=== PATIENT | male | born 1940 | race Caucasian/White ===

== ENCOUNTER 2020-03-06 15:21 | Emergency (ER) | payer OTHER ==
[2020-03-06] MEDS ORDERED: TETANUS & DIPHTHERIA TOX,ADULT 0.5 ML VIAL ONE (16:26)
--- NOTE | 2020-03-06 16:38 | EDPHYS ---
Physician Documentation [facility] Name: Bam Silverman Age: 79 yrs Sex: Male : 1940 Arrival Date: 03/06/2020 Time: 15:22 Bed 18 Private MD: Darin Kelly C ED Physician Win Sandoval HPI: 03/06 16:27 This 79 yrs old Male presents to ER via Ambulatory with complaints of Dog pm1 Bite. 16:27 The patient was bitten on the left knee, by a dog, at a neighbor's home. Onset: The pm1 symptoms/episode began/occurred 1 hour(s) ago. Animal information: The animal was reported to appear healthy. Animal's vaccinations are up to date. [place] . Secondary to the bite the patient reports bite to left knee. Associated signs and symptoms: The patient has no apparent associated signs or symptoms, Pertinent negatives: bony tenderness, motor deficit, numbness distal to wound, pain at site, suspected foreign body. Severity of symptoms: in the emergency department the symptoms have improved. The patient has not experienced similar symptoms in the past. Historical: - Allergies: 15:38 No Known Allergies; ca1 - Home Meds: 15:38 Coumadin 10 mg Oral tab 1 tab 5 x a day [Active]; Coumadin 7.5 mg Oral tab 1 tab 2x a ca1 week [Active]; lisinopril 10 mg oral tab 1 tab once daily [Active]; Zocor 40 mg Oral tab 1 tab once daily [Active]; - PMHx: 15:38 Hypertension; Hyperlipidemia; ca1 - PSHx: 15:38 artificial heart valve; Cholecystectomy; Appendectomy; amputations finger R; ca1 - Immunization history:: Adult Immunizations up to date, Last tetanus immunization: unknown, Pneumococcal vaccine status is unknown, Flu vaccine is up to date. - Social history:: Smoking status: Patient denies any tobacco usage or history of. ROS: 16:27 Constitutional: Negative for fever, chills, and weight loss, Cardiovascular: Negative pm1 for chest pain, palpitations, and edema, Respiratory: Negative for shortness of breath, cough, wheezing, and pleuritic chest pain, Back: Negative for injury and pain. 16:27 Neuro: Negative for headache, weakness, numbness, tingling, and seizure. 16:27 MS/extremity: Positive for for injury, abrasion, Negative for decreased range of motion, deformity. 16:27 Skin: Positive for dog bite on left knee. 16:27 All other systems are negative. Exam: 16:27 Constitutional: This is a well developed, well nourished patient who is awake, alert, pm1 and in no acute distress. Head/Face: Normocephalic, atraumatic. 16:27 Chest/axilla: Normal chest wall appearance and motion. Nontender with no deformity. No lesions are appreciated. 16:27 Cardiovascular: Exam negative for acute changes, Rate: normal, Pulses: no pulse deficits are appreciated, Edema: is not appreciated. 16:27 Respiratory: Exam negative for acute changes, respiratory distress, shortness of breath, wheezing. 16:27 Back: Exam negative for 16:27 Back: Exam negative for acute changes, ROM is normal. 16:27 Musculoskeletal/extremity: Extremities: grossly normal except: noted in the left knee - over lateral head of left fibula: abrasion, There is no evidence of decreased ROM, deformity, laceration, puncture. 16:27 Skin: Appearance: normal except for affected area, injury, abrasion(s), small abrasion noted, of the lateral aspect of left knee - over lateral head of left fibula. 16:27 Neuro: Exam negative for acute changes, Orientation: is normal, Mentation: is normal, Motor: is normal, moves all fours, Sensation: is normal, no obvious gross deficits, Gait: is steady, at a normal pace, without difficulty. Vital Signs: 15:33 BP 170 / 64; Pulse 56; Resp 17 S; Temp 98(O); Pulse Ox 100% on R/A; Weight 88.45 kg ca1 (R); Height 6 ft. 2 in. (187.96 cm); 16:51 BP 157 / 71; Pulse 60; Resp 17; Temp 98; Pulse Ox 100% ; bp 15:33 Body Mass Index 25.04 (88.45 kg, 187.96 cm) ca1 MDM: 15:41 Patient medically screened. pm1 16:15 ED course: officer took report from patient in room. pm1 16:15 Data reviewed: vital signs. Data interpreted: Pulse oximetry: on room air is 100 %. pm1 Interpretation: normal. 16:35 Counseling: I had a detailed discussion with the patient and/or guardian regarding: the pm1 historical points, exam findings, and any diagnostic results supporting the discharge/admit diagnosis, radiology results, the need for outpatient follow up, to return to the emergency department if symptoms worsen or persist or if there are any questions or concerns that arise at home, Patient has Coumadin/INR lab check in 1 week. Informed patient that Augmentin can elevated INR. Educated on need for antibiotic and return precautions. 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 Exp: bp 11/25/2021. Lot #: [id number]. } Route: IM; Site: right deltoid; 16:26 Follow up: Response: No adverse reaction bp Disposition: 18:25 Co-signature as Attending Physician, Win Sandoval MD. rn Disposition: 03/06/20 16:37 Discharged to Home. Impression: Bitten by dog, Abrasion, left knee. - Condition is Stable. - Discharge Instructions: Abrasion, Animal Bite. - Prescriptions for Augmentin 875- 125 mg Oral Tablet - take 1 tablet by ORAL route every 12 hours for 10 days; 20 tablet. - Medication Reconciliation Form, Thank You Letter, Antibiotic Education, Prescription Opioid Use form. - Follow up: Emergency Department; When: As needed; Reason: Worsening of condition. Follow up: Private Physician; When: 2 - 3 days; Reason: Recheck today's complaints, Continuance of care, Re-evaluation by your physician. - Problem is new. - Symptoms have improved. Signatures: Dispatcher [employer] EDMS Win Sandoval MD MD rn Marinas, Patrick, NP CALCULUS PROFESSOR pm1 Wesley Bhagat RN RN bp Acob, Cheryl, RN RN ca1 Corrections: (The following items were deleted from the chart) 16:53 16:37 03/06/2020 16:37 Discharged to Home. Impression: Bitten by dog; Abrasion, left bp knee. Condition is Stable. Forms are Medication Reconciliation Form, Thank You Letter, Antibiotic Education, Prescription Opioid Use. Follow up: Emergency Department; When: As needed; Reason: Worsening of condition. Follow up: Private Physician; When: 2 - 3 days; Reason: Recheck today's complaints, Continuance of care, Re-evaluation by your physician. Problem is new. Symptoms have improved. pm1
--- NOTE | 2020-03-06 16:38 | ER ---
Nurse's Notes [facility] Name: Bam Silverman Age: 79 yrs Sex: Male : 1940 Arrival Date: 03/06/2020 Time: 15:22 Bed 18 Private MD: Darin Kelly C Diagnosis: Bitten by dog;Abrasion, left knee Presentation: 03/06 15:33 Chief complaint: Patient states: Dog bite at L lateral Knee about an hour ago. ca1 Coronavirus screen: Proceed with normal triage. Patient denies a cough. Patient denies shortness of breath or difficulty breathing. Patient denies measured and/or subjective temperature greater than 100.4F prior to today's visit. Patient denies travel on a cruise ship or to a country [facility] currently lists as an affected area. Patient denies contact with known and/or suspected case of COVID-19. Ebola Screen: Patient negative for fever greater than or equal to 101.5 degrees Fahrenheit, and additional compatible Ebola Virus Disease symptoms Patient denies exposure to infectious person. Patient denies travel to an Ebola-affected area in the 21 days before illness onset. No symptoms or risks identified at this time. Initial Sepsis Screen: Does the patient meet any 2 criteria? No. Patient's initial sepsis screen is negative. Does the patient have a suspected source of infection? No. Patient's initial sepsis screen is negative. Risk Assessment: Do you want to hurt yourself or someone else? Patient reports no desire to harm self or others. Onset of symptoms was March 06, 2020. 15:33 Method Of Arrival: Ambulatory ca1 15:33 Acuity: JO-ANN 4 ca1 Triage Assessment: 15:35 Bite description: bite sustained to left knee by a dog, animal information: bp vaccination(s) is current. General: Appears in no apparent distress. comfortable, Behavior is calm, cooperative, appropriate for age. Pain: Complains of pain in left knee. EENT: No deficits noted. Neuro: No deficits noted. Cardiovascular: No deficits noted. Respiratory: No deficits noted. GI: No signs and/or symptoms were reported involving the gastrointestinal system. : No signs and/or symptoms were reported regarding the genitourinary system. Derm: No deficits noted. Musculoskeletal: No deficits noted. Injury Description: Bite sustained to left knee. Historical: - Allergies: 15:38 No Known Allergies; ca1 - Home Meds: 15:38 Coumadin 10 mg Oral tab 1 tab 5 x a day [Active]; Coumadin 7.5 mg Oral tab 1 tab 2x a ca1 week [Active]; lisinopril 10 mg oral tab 1 tab once daily [Active]; Zocor 40 mg Oral tab 1 tab once daily [Active]; - PMHx: 15:38 Hypertension; Hyperlipidemia; ca1 - PSHx: 15:38 artificial heart valve; Cholecystectomy; Appendectomy; amputations finger R; ca1 - Immunization history:: Adult Immunizations up to date, Last tetanus immunization: unknown, Pneumococcal vaccine status is unknown, Flu vaccine is up to date. - Social history:: Smoking status: Patient denies any tobacco usage or history of. Screenin:35 Abuse screen: Denies threats or abuse. Denies injuries from another. Nutritional bp screening: No deficits noted. Tuberculosis screening: No symptoms or risk factors identified. Fall Risk None identified. Assessment: 15:35 General: SEE TRIAGE NOTE. Derm: Skin is intact, is healthy with good turgor, Skin is bp pink, warm \T\ dry. 15:43 Reassessment: called and notified, spoke with Ruth. ca1 16:51 Reassessment: PT D/C HOME AMBULATORY, DX WITH DOG BITE. bp Vital Signs: 15:33 BP 170 / 64; Pulse 56; Resp 17 S; Temp 98(O); Pulse Ox 100% on R/A; Weight 88.45 kg ca1 (R); Height 6 ft. 2 in. (187.96 cm); 16:51 BP 157 / 71; Pulse 60; Resp 17; Temp 98; Pulse Ox 100% ; bp 15:33 Body Mass Index 25.04 (88.45 kg, 187.96 cm) ca1 ED Course: 15:22 Patient arrived in ED. ag5 15:22 Darin Kelly MD is Private Physician. ag5 15:34 Triage completed. ca1 15:35 Patient has correct armband on for positive identification. Bed in low position. Call bp light in reach. Side rails up X2. 15:38 Arm band placed on right wrist. ca1 15:41 Jaya Raygoza NP is PHCP. pm1 15:41 Win Sandoval MD is Attending Physician. pm1 16:15 Wesley Bhagat, RN is Primary Nurse. bp 16:30 Wound care: to DOG BITE located on left knee was cleaned with Hibiclens, dressed with bp Neosporin, Patient tolerated well. 16:39 Knee Left 3 View XRAY In Process Unspecified. EDMS 16:51 No provider procedures requiring assistance completed. Patient did not have IV access bp during this emergency room visit. 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 Exp: bp 11/25/2021. Lot #: [id number]. } Route: IM; Site: right deltoid; 16:26 Follow up: Response: No adverse reaction bp Outcome: 16:37 Discharge ordered by MD. pm1 16:52 Discharged to home ambulatory. bp 16:52 Condition: stable 16:52 Discharge instructions given to patient, Instructed on discharge instructions, follow up and referral plans. medication usage, wound care, Demonstrated understanding of instructions, follow-up care, medications, wound care, Prescriptions given X 1. 16:53 Patient left the ED. bp Signatures: Dispatcher [employer] EDMS Jaya Raygoza, HYPERBARIC TECH HYPERBARIC TECH pm1 Wesley Bhagat, RN RN bp Elizabeth Arrington, RN RN ca1 Sidney Patel ag5 Corrections: (The following items were deleted from the chart) 15:45 15:43 Reassessment: [facility] called and notified ca1 ca1
[2020-03-06 16:59] VITALS: TEMP 98; O2SAT 100
[2020-03-06 17:01] VITALS: BP 157/71
--- NOTE | 2020-03-06 17:01 | RAD REPORT ---
EXAM DESCRIPTION: RAD - Knee Left 3 View - 03/06/2020 4:37 pm CLINICAL HISTORY: ANIMAL BITE COMPARISON: No comparisons FINDINGS: [id number]-ju-lsbxzvcg osteoarthritis is present, greatest involving the medial joint compartmen t. No fracture or radiopaque foreign body seen.
== END 2020-03-06 16:53 | disposition home or self-care (01) ==
LOC: ER 15:21
DX: S80.272A Other superficial bite of left knee, initial encounter (principal); W54.0XXA Bitten by dog, initial encounter; Y93.9 Activity, unspecified; Y92.89 Other specified places as the place of occurrence of the external cause; I10 Essential (primary) hypertension; E78.5 Hyperlipidemia, unspecified; Z23 Encounter for immunization; Z79.01 Long term (current) use of anticoagulants; Z95.2 Presence of prosthetic heart valve
CPT/HCPCS: 90471; 90714; 99284